=== PATIENT | female | born 1940 | race Caucasian/White ===

== ENCOUNTER 2024-01-19 13:29 | Inpatient (IN) | payer MEDICARE, SELFPAY ==
--- NOTE | 2024-01-19 12:43 | W.PN.CARDCBS ---
Today's Communication / Plan
-
LHC today +/- PPM today
Impression / Plan
-
This is a summary, see scanned H&P
PCP: None
CDY: Doroteo Street MD (new to pt)
83 yo female, new to [facility] with very limited medical history - does not use prescription medications or follow with PCP. She presented to the ED due to significant new onset exertional chest tightness and dyspnea that she first noticed yesterday when
walking back from the bus stop for her grandkids. She has not noticed these symptoms prior to this event yesterday. She does describe episode of palpitations associated with dizziness in November 2022 and again this past November, but she attributed
it to 'eating too much cauliflower'. After she stopped eating cauliflower her symptoms resolved. She otherwise denies tobacco use. She does report about two alcoholic cocktails daily, but denies history of EtOH withdrawal or seizures in the past. On
arrival to [facility], engine monitor and ECG suggested 2:1 AV block @ ~45 bpm, which was presumed new, with preserved blood pressure. Troponin negative, CXR no abnormality. She otherwise denies chest pain, shortness of breath, cough, abd pain, nausea,
vomiting, diarrhea, constipation, fever, chills, sweats, lightheadedness, dizziness, palpitations and orthopnea at present.
Impression:
Chest pain
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
Moderate -severe Aortic stenosis by Echo 01/18
Transaminitis
Plan:
Admit IVU
[facility] to assess coronary anatomy, if CAD will need high intensity statin
ASA 325mg if not given at ER
2:1 heart block - TSH normal, lyme serolgy pending, will make NPO for possible PPM in am
K+ 6.2 on arrival treated with lasix, Ca+gluconate ->repeat 4.6 will trend
Transaminitis - trend, daily ETOH recommend cessation and MSAS
Moderate-severe - will assess with [facility], possibly involve structural heart team
continue to monitor closely on telemetry
01/19/24 ECHO:
1. Normal left ventricular systolic function without distinct regional wall motion abnormalities.
2. Left ventricular ejection fraction, by visual estimation, is 60 to 65%.
3. Indeterminate LV diastolic function.
4. Mild concentric left ventricular hypertrophy.
5. Normal right ventricular size and systolic function.
6. The left atrium appears normal by visual inspection.
7. The right atrium appears normal by visual inspection.
8. Aortic valve is thickened and calcified and tricuspid. Moderate to severe aortic valve stenosis. Mild aortic regurgitation.
9. AoV velocity of 4.03 m/s; Peak aortic valve gradient = 65.1 mmHg; Mean gradient = 35.2 mmHg; AoV Area by continuity equation = 1.12 cm2; AoV Dimensionless Index = 0.38.
10. Mild mitral valve regurgitation is seen.
11. Mild mitral valve stenosis with mean gradient of 4.7 mmHg.
12. Inferior vena cava normal in size (>2.1 cm) + less than 50% variably consistent with elevated right atrial pressures (15 mmHg).
13. Right atrial pressure of (15 mmHg), the estimated right ventricular systolic pressure is moderately elevated at (52.9 mmHg).
14. There are no prior studies for comparison.
Progress Note - Geography Teacher
Subjective
Date of Service: January 19, 2024
Physical Exam
Physical Exam
NAD, AOx3
S1, S2, SVR, 3/6 IV LUIS MANUEL
CTAB, non labored, no wheeze
SNTND bsx4
No LE edema
[2024-01-19 13:38] VITALS: BP 203/74
[2024-01-19 13:39] VITALS: BMI 32.3
[2024-01-19] MEDS: LOW STRENGTH ASPIRIN 324 MG PO (14:13)
--- NOTE | 2024-01-19 15:37 | ITS.CL.CATH ---
Service Desk Associate - Catheterization
Cardiac Catheterization
Procedure Report:
LEFT HEART CATHETERIZATION
Date of Procedure: 01/19/2024
Procedures performed:
1: Coronary angiography
2: Left ventriculography
Referring Physician: Dr. Doroteo Street
INDICATION: The patient is an 83-year-old woman who has not seen a medical doctor previously who showed up to the [facility] emergency room reporting exertional chest pain and mild dizziness for the last several days. She was found to be in
2-1 AV block. EKG was otherwise benign with negative cardiac enzyme. Echo showed at least moderate aortic stenosis with preserved LV systolic function. She was transferred from the [facility] emergency room for urgent cardiac
catheterization and consideration for pacemaker placement for symptomatic bradycardia. Of note, the patient is in 2-1 AV block with a ventricular rate of 40 bpm.
ACCESS: The patient was prepped and draped in usual sterile fashion. A 5 Tunisian sheath was placed in the right radial artery using the Seldinger over the wire technique.
HEMODYNAMIC FINDINGS (mmHg):
LV(s/d,EDP): 210/12, 33
Ao(s/d,m): 190/61, 103
Pullback gradient across the aortic valve: 24 mmHg
ANGIOGRAPHIC FINDINGS:
Single-plane Left Ventriculography in [place]ILSON Projection: Not done.
Coronary Angiography:
Dominance: Right
Left Main: Short, normal.
Left Anterior Descending: The left anterior descending artery is a large-caliber vessel that gives rise to several small diagonal branches that are widely patent. The LAD itself has mild nonobstructive luminal irregularities with normal flow.
Left Circumflex: The left circumflex is a large caliber nondominant system that gives rise to 3 major obtuse marginal branches which are widely patent with no focal obstructive disease.
Right Coronary: The right coronary artery is a large-caliber dominant vessel that gives rise to a medium caliber posterior descending artery and 2 posterior left ventricular branches. These vessels are very tortuous but have only mild
nonobstructive luminal irregularities.
Fluoroscopy Time (min): 2.3
Radiation Dose (mGy): 316
DAP (Gy.cm2): 24
Closure device: None. A TR band was applied for hemostasis at the right wrist.
Complications: None.
ASSESSMENT:
1: Very mild nonobstructive coronary artery disease.
2: Moderate aortic valvular stenosis.
CONCLUSIONS and RECOMMENDATIONS:
1: Proceed with planned permanent pacemaker placement.
Tiffany Taylor M.D.
--- NOTE | 2024-01-19 16:12 | CM ---
CM attempted to meet w/ patient at bedside to complete initial assessment. Pt. was not in her room. Will re-attempt later.
--- NOTE | 2024-01-19 17:45 | ITS.CL.PACE ---
In Home Aide - Pacemaker Implant
Pacemaker Implant
Procedure Report:
PACEMAKER IMPLANT REPORT
Primary Cell Technician: Dr. Doroteo Street
Date of Procedure: January 19, 2024
Procedure:
1: Implantation of dual-chamber permanent pacemaker utilizing the left bundle branch for conduction system pacing
Indication/Diagnosis:
1: Non-reversible symptomatic bradycardia due to second atrioventricular block
HISTORY: The patient is an 83-year-old woman who has had no regular medical care who presented to the [facility] emergency room complaining of chest pain and intermittent dizziness. She was found to be in 2-1 AV block with an effective
ventricular rate of 40 bpm. She had an echo at [place] which showed preserved LV systolic function and moderate to severe aortic stenosis. She was transferred to [facility] and had cardiac catheterization today which revealed normal
coronary arteries. She is now referred for pacemaker placement. Given her advanced AV block I am going to attempt to place a left bundle branch conduction system pacing lead.
Antibiotic: Ancef 2 g IV
Sedation: Conscious sedation provided by anesthesia staff
After informed consent was obtained, 'time out' was called and confirmed, the patient was prepped and draped in a sterile fashion. Lidocaine with epi was used for local anesthesia. Central venous access was obtained via subclavian venipuncture. An
incision was made along the left chest and a pre-pectoral pocket was formed. Using a Seldinger technique and peel-away sheaths, the pacing leads were placed under fluoroscopic guidance.
Fluoroscopy was used to determine likely anatomic site for left bundle branch pacing. The Medtronic C315 sheath was used to deliver the Medtronic 3830 Selectsecure pacing lead with the helix exposed just exposed from the sheath tip during continuous
monitoring when pacemapping the septum during gentle clockwise rotation to obtain a paced QRS morphology of a W pattern in lead V1. Once the suspected optimal site was identified, lead deployment was performed with several rapid rotations as paced
QRS morphology was intermittently monitored until a paced QRS complex in lead V1 demonstrated development of an R wave (qR or rSR).
Stable VEgm injury current is present throughout lead position and at end of case.
Final unipolar pacing impedance is 800 Ohms
Unipolar pacing threshold is stable at [ ] V @ [ ] ms.
Final conduction system paced QRS complex duration is 87 ms
LVAT is 87 ms and peak V5 -> peak V1 timing is 39 ms
Right atrial lead was placed at the RAA.
Once testing (see below) showed adequate and stable function, the leads were secured using the suture sleeves. The pocket was liberally irrigated with antibiotic solution. The leads were connected to the generator header and the leads and
generator were placed within the pocket. Fluoroscopy confirmed stable lead position. The pocket was closed in the typical fashion.
Fluoroscopy Time (min): 18.1
Radiation Dose (mGy): 367
DAP (Gy.cm2): 27.5
IMPLANTS:
Medtronic [id number], SN: [id number] , Left Pectoral
RA: Medtronic 5076-52, SN: [id number], RAA
RV: Medtronic 3830 , SN:[id number], Interventricular septum at LBB
DEVICE TESTING:
Sensing: RA 1.4 mV, RV 6.7 mV
Capture: RA 1.3 V@0.4ms, RV 1.0 V@0.4ms
Ohms: RA 589, RV 608
FINAL PROGRAMMING
Scotty Pacing: AAIR+ 60-130 ppm
COMPLICATIONS: None
CONCLUSIONS:
1: Successful implant of dual chamber permanent pacemaker utilizing Left Bundle Branch conduction system capture for pacing. Overall findings are most consistent with LBB capture. Note that both LBB capture and Left Ventricular Septal capture has
been associated with improved left ventricular systolic function via cardiac resynchronization.
RECOMMENDATIONS:
1. Post-op care (tele, CXR, IV abx)
2. In-Office wound check in 5-7 days
[2024-01-19 17:53] VITALS: BP 154/101
[2024-01-19 18:00] VITALS: BP 146/77
[2024-01-19 18:30] VITALS: BP 146/74
[2024-01-19 19:00] VITALS: BP 125/58
--- NOTE | 2024-01-19 19:16 | PTCARENOTE ---
Pt received from [facility] in 2:1 av block with heart rate @ 40's. Pt denies any discomfort, seen by . Pt had cardiac cath via right radial artery and then immediately went to EP lab for a pacemaker placed in left anterior chest. Post procedures,
radial band removed with out problem, no sign of bleeding or hematoma. Left chest dressing dry and intact, immobilizer in place. Activity restrictions demonstrated and reviewed with pt who states understanding. Telemetry shows vent.paced rhythm.
[2024-01-19] MEDS: ANCEF 5 IV (22:26)
[2024-01-19] MEDS: TYLENOL 650 MG PO (22:27)
[2024-01-19 22:32] VITALS: BP 135/65
--- NOTE | 2024-01-20 00:08 | PTCARENOTE ---
Pt rec'd at beginning of shift awake,alert no c/o pain. Pt aware to not put any pressure down on right wrist secondary to cath today via right radial site. Pt also aware of left limb restrictions secondary to pacer implant today. Drsg at pacer site
dry and intact, no active swelling noted. cxr completed in dept.
assisted to bathroom, gait steady. call champion within reach. Medicated at HS with Tylenol for minimal discomfort at pacer site
--- NOTE | 2024-01-20 03:51 | DOWNTIME ---
There was a [employer] Client Museum Attendant Downtime on 01/20/2024 from 0200 to 01/20/2024 at 0325 . Downtime documentation of patient's care, including medication administrations, has been reconciled in the electronic record per guidelines. Refer to the
patient's paper chart under the miscellaneous tab to see printed paper medication records and downtime forms.
[2024-01-20 04:01] VITALS: BP 121/60
[2024-01-20 04:38] LABS: Hematocrit 37.8 % (37.0-47.0); Hemoglobin 12.4 g/dL (12.0-16.0); Mean Corp Hgb Conc. 32.8 g/dL (33.0-37.0); Mean Corpuscular Hgb 31.7 pg (27.0-31.0); Mean Corpuscular Volume 96.7 fL (81.0-99.0); Mean Platelet Volume 10.5 fL (7.4-10.4); Platelet Count 153 10^3/uL (130-400); Red Blood Cell Count 3.91 10^6/uL (4.20-5.40); Red Cell Dist. Width 13.5 % (11.5-14.5)
--- NOTE | 2024-01-20 04:59 | PTCARENOTE ---
Pts pacer site remains with DDI, no hematoma noted. immobilizer in use. Right radial with DDI, no hematoma. No c/o pain at present.
[2024-01-20 05:02] LABS: ALT (SGPT) 37 U/L (0-35); AST (SGOT) 55 U/L (14-36); Albumin 3.8 g/dl (3.5-5.0); Alkaline Phosphatase 78 U/L (38-126); Blood Urea Nitrogen 16 mg/dl (7-17); Calcium 9.3 mg/dl (8.4-10.2); Carbon Dioxide 21 mmol/L (22-30); Chloride 109 mmol/L (98-107); Estimated Creatinine Clearance 63 ml/min; Glucose 102 mg/dl (70-99); Magnesium 2.1 mg/dl (1.6-2.3); Potassium 4.4 mmol/L (3.5-5.1); Sodium 138 mmol/L (135-145); Total Bilirubin 0.8 mg/dl (0.2-1.3); Total Protein 6.3 g/dl (6.3-8.2); eGFR > 60.00
[2024-01-20] MEDS: ANCEF 5 IV (06:00)
[2024-01-20 07:49] VITALS: BP 161/64
--- NOTE | 2024-01-20 09:06 | W.PN.CARDCBS ---
Addendum entered and electronically signed by Joao Betancourt MD 01/20/24 10:29:
Patient seen and examined
Agree with PATIENT OMBUDSPERSON note and assessment
Agree with PATIENT OMBUDSPERSON plan
Examination:
Pacer site clean dry and intact
Cor regular 2 out of 6 LUIS MANUEL
Lungs clear to station bilaterally
No acute distress
Nonfocal neurologically
Remainder as per STAFF DEVELOPMENT MANAGER note assessment
Impression:
Chest pain
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
Moderate -severe Aortic stenosis by Echo 01/18
Transaminitis
Plan:
Post LHC with non obstructive CAD
Post DC PPM Medtronic
site stable with steri strips
tele AsVpaced, [facility] express complete
CXR no PTX, leads in position
K stable
LFT's continue to trend down
BP slightly elevated when stressed, will monitor at home and bring log to follow up appointment
Will not add any meds at this time
Moderate by pullback on cath, will need serial ECHO to assess progression
Activity restrictions reviewed
Incision check Wednesday at [facility]
stable for d/c home
Original Note:
Today's Communication / Plan
-
stable for d/c home
Impression / Plan
-
This is a summary, see scanned H&P
PCP: None
CDY: Doroteo Street MD (new to pt)
83 yo female, new to [facility] with very limited medical history - does not use prescription medications or follow with PCP. She presented to the ED due to significant new onset exertional chest tightness and dyspnea that she first noticed yesterday when
walking back from the bus stop for her grandkids. She has not noticed these symptoms prior to this event yesterday. She does describe episode of palpitations associated with dizziness in November 2022 and again this past November, but she attributed
it to 'eating too much cauliflower'. After she stopped eating cauliflower her symptoms resolved. She otherwise denies tobacco use. She does report about two alcoholic cocktails daily, but denies history of EtOH withdrawal or seizures in the past. On
arrival to [facility], real estate officer and ECG suggested 2:1 AV block @ ~45 bpm, which was presumed new, with preserved blood pressure. Troponin negative, CXR no abnormality. She otherwise denies chest pain, shortness of breath, cough, abd pain, nausea,
vomiting, diarrhea, constipation, fever, chills, sweats, lightheadedness, dizziness, palpitations and orthopnea at present.
Impression:
Chest pain
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
Moderate -severe Aortic stenosis by Echo 01/18
Transaminitis
Plan:
Post LHC with non obstructive CAD
Post DC PPM Medtronic
site stable with steri strips
tele AsVpaced, [facility] express complete
CXR no PTX, leads in position
K stable
LFT's continue to trend down
BP slightly elevated when stressed, will monitor at home and bring log to follow up appointment
Will not add any meds at this time
Moderate by pullback on cath, will need serial ECHO to assess progression
Activity restrictions reviewed
Incision check Wednesday at [facility]
stable for d/c home
01/19/24 ECHO:
1. Normal left ventricular systolic function without distinct regional wall motion abnormalities.
2. Left ventricular ejection fraction, by visual estimation, is 60 to 65%.
3. Indeterminate LV diastolic function.
4. Mild concentric left ventricular hypertrophy.
5. Normal right ventricular size and systolic function.
6. The left atrium appears normal by visual inspection.
7. The right atrium appears normal by visual inspection.
8. Aortic valve is thickened and calcified and tricuspid. Moderate to severe aortic valve stenosis. Mild aortic regurgitation.
9. AoV velocity of 4.03 m/s; Peak aortic valve gradient = 65.1 mmHg; Mean gradient = 35.2 mmHg; AoV Area by continuity equation = 1.12 cm2; AoV Dimensionless Index = 0.38.
10. Mild mitral valve regurgitation is seen.
11. Mild mitral valve stenosis with mean gradient of 4.7 mmHg.
12. Inferior vena cava normal in size (>2.1 cm) + less than 50% variably consistent with elevated right atrial pressures (15 mmHg).
13. Right atrial pressure of (15 mmHg), the estimated right ventricular systolic pressure is moderately elevated at (52.9 mmHg).
14. There are no prior studies for comparison.
Progress Note - Electrical Worker
Subjective
Date of Service: January 20, 2024
mild incisional pain, no cp, sob
Objective
Labs:
01/20/24 04:11
01/20/24 04:11
Labs
Hgb 12.4 g/dL (12.0-16.0) 01/20/24 04:11
Hct 37.8 % (37.0-47.0) 01/20/24 04:11
Plt Count 153 10^3/uL (130-400) 01/20/24 04:11
Sodium 138 mmol/L (135-145) 01/20/24 04:11
Potassium 4.4 mmol/L (3.5-5.1) 01/20/24 04:11
BUN 16 mg/dl (7-17) 01/20/24 04:11
Creatinine 0.8 mg/dL (0.6-1.0) 01/20/24 04:11
Glucose 102 mg/dl (70-99) H 01/20/24 04:11
Vital Signs and I&O:
Vital Signs
Temp Pulse Resp BP Pulse Ox
98.2 F 61 20 161/64 96
01/20/24 07:46 01/20/24 08:00 01/20/24 07:46 01/20/24 07:49 01/20/24 07:46
Vital Signs
Temp Pulse Resp BP Pulse Ox
98.2 F 61 20 161/64 96
01/20/24 07:46 01/20/24 08:00 01/20/24 07:46 01/20/24 07:49 01/20/24 07:46
Intake & Output
01/18/24 01/19/24 01/20/24 01/21/24
06:59 06:59 06:59 06:59
Intake Total 740 / 740
Balance 740 / 740
Physical Exam
Physical Exam
NAD< AOX3
S1, S2, RRR, 3/6 LUIS MANUEL
CTAB, non labored, no wheeze
SNTND bsx4
R rad site c/d/i, good pulse
L CW site dressing removed, steri strips in place, small spot of old drainage
[2024-01-20] MEDS: FLUAD (65 yr+) 2024-2025 FORMULA 0.5 ML IM (09:20)
--- NOTE | 2024-01-20 09:33 | CM ---
CM following for DC planning needs.
Met w/ patient at bedside to complete initial assessment. Pt. informs that she resides w/ her son and his family in a private home. She is functionally indep. at baseline w/ ADLs, mobility without the use of any assisted device.
She has prescription plan and uses [facility] on [address] for prescription needs.
Anticipated DC plan is for home without needs.
Pt. expects DC today and offers no concerns or needs.
--- NOTE | 2024-01-20 11:10 | PTCARENOTE ---
Pt received this am with no c/o of any chest pain, sob or incisional pain. Left chest incision clean and dry with steri strips intact. Immobilizer removed by WEIGHT CALLER. Pt discharged to home with her son. Discharge instructions given and reviewed with pt
and her son with good understanding.
--- NOTE | 2024-01-20 13:35 | W.DS.TRANS ---
DC Summary - Cutter Finisher
-
Discharge Instructions:
Discharge Diagnosis/Procedures Heart block and Aortic stenosis, Cardiac cath
and Pacemaker implant
Diet Low Sodium
Driving Restrictions No driving for 1 week
Bathing Restrictions OK to Shower
Instructions:
Stand-Alone Forms: DC Instructions- Cath/EP Lab
DC Inst - Implanted Device
Changes to Home Medications: No
Discharge Medications:
DC Medications w/original date entered in [place]
No Meds [No Current Medications] 01/19/24
Home Medication Changes
Pending Results: No
== END 2024-01-20 10:16 | disposition home or self-care (01) | DRG 244 ==
LOC: IVU 13:29
PROVIDERS: Nurse Practitioner Adult Health; ADMITTING PHYSICIAN Internal Medicine Interventional Cardiology
PROC: 0JH606Z Insertion of Pacemaker, Dual Chamber into Chest Subcutaneous Tissue and Fascia, Open Approach (ICD-10-PCS; 2024-01-19)
PROC: 4A023N7 Measurement of Cardiac Sampling and Pressure, Left Heart, Percutaneous Approach (ICD-10-PCS; 2024-01-19)
PROC: 02HK3JZ Insertion of Pacemaker Lead into Right Ventricle, Percutaneous Approach (ICD-10-PCS; 2024-01-19)
PROC: B2151ZZ Fluoroscopy of Left Heart using Low Osmolar Contrast (ICD-10-PCS; 2024-01-19)
PROC: B2111ZZ Fluoroscopy of Multiple Coronary Arteries using Low Osmolar Contrast (ICD-10-PCS; 2024-01-19)
PROC: 02H63JZ Insertion of Pacemaker Lead into Right Atrium, Percutaneous Approach (ICD-10-PCS; 2024-01-19)
DX: I25.10 Atherosclerotic heart disease of native coronary artery without angina pectoris (principal); I35.0 Nonrheumatic aortic (valve) stenosis; I44.1 Atrioventricular block, second degree
CPT/HCPCS: 33208; 71045; 80053; 83735; 85027; 87070; 90662; 93005; 93458; C1769; C1785; C1892; C1894; C1898; G0008; Q9967